=== PATIENT | female | born 1965 | race African-American/Black ===

== ENCOUNTER 2018-09-22 23:31 | Emergency (ER) | payer SELFPAY ==
[~2018-09-22] VITALS: Ht 162.6 cm; Wt 100.0 kg
[2018-09-23] MEDS ORDERED: ONDANSETRON HCL 4MG/2ML INJ IV STA (01:00)
[2018-09-23] MEDS ORDERED: MORPHINE SULFATE 4 MG/ML CPJ (NOT FOR IM USE) IV STA (01:00)
[2018-09-23 01:30] LABS: BASOPHILS % 1.1 % (0.0-2.0); EOSINOPHILS % 2.7 % (0.0-5.0); HEMATOCRIT. 35.8 % (36.0-48.0); MEAN CORPUSCULAR HEMOGLOBIN 29.7 pg (28.0-32.0); MEAN CORPUSCULAR VOLUME 88.8 fL (81.0-99.0); MEAN PLATELET VOLUME 9.3 fl (7.4-10.4); MONOCYTES % 6.7 % (2.0-8.0); NEUTROPHILS % 41.5 % (40.0-76.0); PLATELET 278 x1000/uL (130-400); RED BLOOD CELL COUNT 4.04 mill/uL (4.2-5.4); RED CELL DISTRIBUTION WIDTH 13.5 % (11.6-14.6)
[2018-09-23 01:33] LABS: CLARITY URINE TURBID (CLEAR); COLOR URINE YELLOW (YELLOW); KETONES URINE NEGATIVE (NEGATIVE); LEUKOCYTE ESTERASE URINE 2+ (NEGATIVE); NITRITE URINE NEGATIVE (NEGATIVE); OCCULT BLOOD URINE 2+ (NEGATIVE); PROTEIN URINE NEGATIVE (NEGATIVE); SPECIFIC GRAVITY URINE 1.034 (1.005-1.030); UROBILINOGEN URINE 0.2 E.U./dL (0.2-1.0)
[2018-09-23 01:37] LABS: CHLORIDE 103 mEq/L (98-107)
[2018-09-23 01:38] LABS: PROTHROMBIN TIME 10.1 sec (9.6-11.0)
[2018-09-23 04:11] VITALS: BP 126/74
== END 2018-09-23 04:44 | disposition home or self-care (01) ==
LOC: ER 23:31
DX: N39.0 Urinary tract infection, site not specified (principal); M79.662 Pain in left lower leg; M79.661 Pain in right lower leg; Z91.013 Allergy to seafood
CPT/HCPCS: 36415; 71045; 80053; 81003; 81025; 85025; 85610; 85730; 87077; 87086; 87186; 93970; 96374; 96375; 99284; J2270; J2405; Z7610